=== PATIENT | male | born 2000 | race Caucasian/White ===

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

== ENCOUNTER 2018-01-17 18:57 | Emergency (ER) | payer MEDICAID ==
--- NOTE | 2018-01-17 18:59 | EDPHY ---
H & P Time Seen by Provider: 01/17/18 18:59 HPI/ROS: HPI CHIEF COMPLAINT: Right ear pain. HISTORY OF PRESENT ILLNESS: Patient very pleasant 17-year-old male, otherwise healthy no significant medical history does not take any daily medications presents emergency room with right ear pain times 24 hr. He denies any fever. He has noticed that he does suffer from allergies. It may be his congestion has been a little bit worse but developed worsening right ear pain. No fever. No ringing in his ears. No trouble with hearing. No trauma. Past Medical History: Denies medical history Past Surgical History: Leg surgery Social History: Denies daily use of drugs alcohol tobacco Family History: Noncontributory ROS REVIEW OF SYSTEMS: A comprehensive 10 point review of systems is otherwise negative aside from elements mentioned in the history of present illness. Exam Constitutional appears well nontoxic no acute distress triage nursing summary reviewed, vital signs reviewed, awake/alert. Eyes normal conjunctivae and sclera, EOMI, PERRLA. HENT right TM slightly erythematous no significant bulge, left TM clear, posterior pharynx unremarkable, normal inspection, atraumatic, moist mucus membranes, no epistaxis, neck supple/ no meningismus, no raccoon eyes. Respiratory clear to auscultation bilaterally, normal breath sounds, no respiratory distress, no wheezing. Cardiovascular rate normal, regular rhythm, no murmur, no edema, distal pulses normal. Gastrointestinal soft, non-tender, no rebound, no guarding, normal bowel sounds, no distension, no pulsatile mass. Genitourinary no CVA tenderness. Musculoskeletal no midline vertebral tenderness, full range of motion, no calf swelling, no tenderness of extremities, no meningismus, good pulses, neurovascularly intact. Skin pink, warm, & dry, no rash, skin atraumatic. Neurologic awake, alert and oriented x 3, AAOx3, moves all 4 extremities equally, motor intact, sensory intact, CN II-XII intact, normal cerebellar, normal vision, normal speech. Psychiatric normal mood/affect. Heme/Lymph/Immune no lymphadenopathy. Differential Diagnosis: Includes but is not limited to in a particular order upper respiratory tract infection, viral syndrome, otitis media, middle ear effusion, sinusitis, URI, seasonal allergies Medical Decision Making: Plan for this patient given the pain in the right ear mild erythema will treat for otitis media with amoxicillin. Additionally I do recommend he obtains Mucinex decongestant or Claritin or Marycruz D for decongestion purposes in terms of allergies. Additionally return emergency room if his any worsening symptoms questions or concerns. Source: Patient - Medical/Surgical History Hx Asthma: No Hx Chronic Respiratory Disease: No Hx Diabetes: No Hx Cardiac Disease: No Hx Renal Disease: No Hx Cirrhosis: No Hx Alcoholism: No Hx HIV/AIDS: No Hx Splenectomy or Spleen Trauma: No Other PMH: left arm surg - Social History Smoking Status: Never smoked Constitutional: Initial Vital Signs Temperature (C) 37.2 C 01/17/18 19:01 Heart Rate 105 H 01/17/18 19:01 Respiratory Rate 16 01/17/18 19:01 Blood Pressure 146/89 H 01/17/18 19:01 O2 Sat (%) 95 01/17/18 19:01 O2 Delivery Mode Room Air Allergies/Adverse Reactions: No Known Allergies Allergy (Verified 01/17/18 19:02) Home Medications: Medication Instructions Recorded Amoxicillin Trihydrate [Amoxil] 500 mg PO TID 7 Days cap 01/17/18 Departure - Departure Disposition: Home, Routine, Self-Care Clinical Impression: Ear pain, right Instructions: Ear Infection (ED) Additional Instructions: 1. Recommend he take an [id number] decongestant Like Marycruz-D. Or Claritin-D. 2. Antibiotics as prescribed. 3. Return to the emergency room if you have worsening symptoms questions or concerns Referrals: Sola Solis PA [Primary Care Provider] - As per Instructions Prescriptions: Amoxicillin Trihydrate [Amoxil] 500 mg PO TID 7 Days cap
[2018-01-17 19:02] VITALS: BP 146/89
== END 2018-01-17 19:11 | disposition home or self-care (01) ==
LOC: CED 18:57
DX: H92.01 Otalgia, right ear (principal)